=== PATIENT | male | born 1950 | race Caucasian/White ===

== ENCOUNTER 2018-11-12 20:38 | Inpatient (IN) ==
--- NOTE | 2018-11-12 20:46 | Diag Imaging Result Doc PS360 ---
EXAM: CT HEAD W/O CONTRAST INDICATION: stroke like TECHNIQUE: This exam was performed using automated exposure control, adjustment of mA or kV according to patient size, and/or use of iterative reconstruction technique. COMPARISON: None. FINDINGS: There is no definite acute infarct given the limited sensitivity of CT versus MRI. There is no discrete intracranial mass, mass effect, or intracranial hemorrhage. There is extensive chronic left maxillary sinus disease with complete opacification of the left maxillary sinus. Surrounding soft tissues and bony structures are essentially unremarkable, otherwise. IMPRESSION: 1.No evidence of acute intracranial pathology by CT. 2.Chronic left maxillary sinusitis. Electronically signed by Buck Rodriguez 11/12/2018 8:43 PM
[2018-11-12] MEDS ORDERED: NS 1,000 ML IV ONE ×2 (20:52→20:53)
--- NOTE | 2018-11-12 20:56 | PROVIDER DOCUMENTATION ---
HPI-General Adult - General Stated Complaint: Poss Stroke Time Seen by Provider: 11/12/18 20:40 Source: family Unable to obtain history due to:: other (she does not know all of his medical hx, or many detalils of HPI) - History of Present Illness -Gen Adult Nature of Presenting Problems: Family says BS has been high, she is unsure for how long, pt has not told her, just knows that has not been taking his meds. She says he has been less alert, not talking for 3 hours. No fever known, no abd pain, no N/V/change in BM. No cough. Pt is looking about, slowly, but is nonverbal Old records reviewed. No recent admissions Review of Systems - Adult - REVIEW OF SYSTEMS - ADULT ROS:: unobtainable per condition Constitutional: reports: see HPI Eyes: reports: no symptoms reported Ears, Nose, Mouth & Throat: reports: no symptoms reported Cardiovascular: reports: no symptoms reported Neurological: reports: see HPI Psychiatric: reports: see HPI Endocrine: reports: no symptoms reported Hematologic/Lymphatic: reports: no symptoms reported Past History - Adult - PAST MEDICAL HISTORY-ADULT Review of Records: reports: Medications Reviewed Cardiovascular: reports: HTN Diabetes Type: Type 2 Physical Exam-General - PHYSICAL EXAM-ADULT Initial Vital Signs Reviewed: Yes - CONSTITUTIONAL General Appearance: mild distress, other (awake, not alert) - EYES Eyes: PERRL/EOMI, pink conjunctivae - HEAD, EARS, NOSE, MOUTH & THROAT HENMT: normocephalic/atraumatic, moist mucous membranes, normal ENT inspection, pharynx normal - NECK Neck: full range of motion, supple - RESPIRATORY Respiratory: lungs clear, normal breath sounds, no pleuratic chest pain, no respiratory distress, no accessory muscle use - CARDIOVASCULAR Cardiovascular: regular rate, rhythm, no edema, no gallop, no murmur - GASTROINTESTINAL (ABDOMEN) Abdominal Exam: normal bowel sounds, non tender, soft - MUSCULOSKELETAL Back Exam: normal inspection, no CVA tenderness, no vertebral tenderness Extremity: normal range of motion, non-tender, normal gait, normal inspection - SKIN Integumentary: normal color, normal turgor, warm/dry - NEUROLOGIC Neurologic: other (has random extremity motion, is non verbal, so cant check senastion) - PSYCHIATRIC Psych/Mental Status: other (unable to evaluate) Progress - PLAN OF CARE/RESULTS Progress/Plan/Lab Results: Orders Category Date Time Status CT HEAD W/O CONTRAST [CT] Stat Exams 11/12/18 20:31 Completed Result Diagrams: 11/12/18 21:26 11/12/18 21:26 - REASSESSMENT Reassessment #1 Time Reassessed: 23:04 - CONSULTS/PCP/HOSPITALIST Notification #1 *Consult/PCP/Hospitalist*: Raghavendra Time Discussed: 23:10 Consult Disposition: Will see in ED, Admit Departure - Departure Date of Disposition Decision: 11/12/18 Time of Disposition Decision: 23:04 DIAGNOSIS: Altered mental status, Hyponatremia, Acute kidney injury, Hyperglycemia due to type 2 diabetes mellitus Disposition: ADMITTED INPATIENT 09 Certified Medical Emergency: Emergent Condition: Good Referrals and Follow-Ups: Juan Monroe MD [Primary Care Provider] - - Critical Care Note This patient required my direct & personal management of CC.: No Attestation - Physician/ SONIDO Attestation Patient care was provided by Advanced Practice Provider:: No The physician spent face to face time with patient:: Yes Advanced Practice Provider documentation review:: Supervising physician onsite and consulted in the evaluation and care of this patient. The physician did have a face to face encounter with the patient.
--- NOTE | 2018-11-12 21:11 | Diag Imaging Result Doc PS360 ---
EXAM: CHEST-1 VIEW INDICATION: AMS TECHNIQUE: One view COMPARISON: None. FINDINGS: There is a calcified granuloma at the right lower lung zone. Inspiration is suboptimal. No well-defined airspace consolidation is appreciated. There is no discrete pleural fluid collection or pneumothorax. There are calcified right paratracheal lymph nodes indicating prior granulomatous disease. The central vasculature appears slightly prominent, probably due to vascular crowding from poor inspiration and/or mild pulmonary venous congestion. The cardiac silhouette is borderline prominent. IMPRESSION: Slightly prominent central vasculature suggesting likely mild pulmonary venous congestion. Electronically signed by Buck Rodriguez 11/12/2018 9:09 PM
[2018-11-12 21:12] LABS: ALLEN TEST YES; BE 1.4 mmoll (-3.0-3.0); BLOOD TYPE ARTERIAL; HCO3-(ACT) 25.9 mmoll (20.0-26.0); METHB 0.9 % (0.0-1.5); O2(CT) 11.5 mL/dL (15.0-23.0); O2HB 89.1 % (95.0-99.0); PCO2(98.6) 44 mmHg (35-45); PO2(98.6) 66 mmHg (60-100); SAMPLE BLOOD; SAO2 96.8 % (95.0-100.0); THB 9.1 g/dL (11.5-17.4); pH(98.6) 7.39 (7.35-7.45)
[2018-11-12 21:13] LABS: MODALITY CANNULA
[2018-11-12 21:52] LABS: BASO# 0.04 X1000 (0.0-0.2); BASO% 0.5 % (0.0-0.8); EOS# 0.09 X1000 (0.0-0.7); EOS% 1.1 % (0.0-10.0); HEMATOCRIT 30.7 % (42.0-52.0); IMM GRAN# 0.05 X1000 (0.0-0.04); IMM GRAN% 0.6 % (0.0-0.5); LYMPH# 2.77 X1000 (1.2-3.4); LYMPH% 33.3 % (20.5-51.1); MCH 25.4 PG (27-31); MCHC 32.6 g/dL (33-37); MCV 77.9 FL (81-99); MONO# 0.79 X1000 (0.11-0.59); MONO% 9.5 % (1.7-9.3); NEUT# 4.59 X1000 (1.4-6.5); PLT 170 X1000 (130-400); RBC 3.94 XMIL (4.7-6.1); RDW 17.7 % (11.5-14.5); WBC 8.33 X1000 (4.8-10.8)
[2018-11-12 21:58] LABS: INR 0.97; PROTIME 13.7 Seconds (11.0-16.0)
[2018-11-12 21:59] LABS: PTT 29.5 Seconds (22.3-41.8)
[2018-11-12 22:15] LABS: URINE SOURCE CATH
[2018-11-12 22:20] LABS: BILIRUBIN URINE NEGATIVE (NEGATIVE); BLOOD URINE NEGATIVE (NEGATIVE); COLOR STRAW; GLUCOSE URINE >1000 mg/dL (NEGATIVE); KETONE URINE NEGATIVE (NEGATIVE); LEUKOCYTES URINE NEGATIVE (NEGATIVE); NITRITE URINE NEGATIVE (NEGATIVE); PROTEIN URINE NEGATIVE (NEGATIVE); SP GRAVITY URINE 1.005; TURBIDITY URINE CLEAR (CLEAR); UR EPITHELIAL CELLS <10 /HPF (<10); URINE BACTERIA NEGATIVE /HPF; URINE RBC <10 /HPF (<10); URINE WBC <10 /HPF (<10); UROBILINOGEN URINE NORMAL (NORMAL)
[2018-11-12 22:29] LABS: ACETONE SERUM NEGATIVE (NEGATIVE)
[2018-11-12 22:32] LABS: AGAP 12; ALB/GLOB RATIO 1.3; ALBUMIN 3.7 g/dL (3.5-5.0); ALKALINE PHOSPHATASE 65 U/L (32-122); BUN 42 mg/dL (8-22); CALCIUM 8.2 mg/dL (8.8-10.2); CHLORIDE 92 mmol/L (98-107); COSMO 287; CREATININE 1.8 mg/dL (0.7-1.2); ESTIMATED GFR 38; GOT 9 U/L (10-34); GPT 8 U/L (10-44); POTASSIUM 4.2 mmol/L (3.5-5.1); SODIUM 129 mmol/L (136-145); TCO2 25 mmol/L (25-35); TOTAL BILIRUBIN 0.39 mg/dL (0.20-1.00); TOTAL PROTEIN 6.5 g/dL (6.3-8.3)
[2018-11-12 22:33] LABS: UR AMPHETAMINES QUAL NONE DETECTED (NONE DETECT); UR BARBITUATES QUAL NONE DETECTED (NONE DETECT); UR BENZODIAZEPIN QUAL PRESUMPTIVE POSITIVE (NONE DETECT); UR CANNABINOIDS QUAL NONE DETECTED (NONE DETECT); UR COCAINE QUAL NONE DETECTED (NONE DETECT); UR METHADONE QUAL NONE DETECTED (NONE DETECT); UR OPIATES QUAL NONE DETECTED (NONE DETECT); UR OXYCODONE QUAL NONE DETECTED (NONE DETECT); UR PCP QUAL NONE DETECTED (NONE DETECT)
[2018-11-12 22:34] LABS: GLUCOSE 421 mg/dL (70-104)
[2018-11-12] MEDS ORDERED: HUMULIN R IV ONE (23:03)
[2018-11-13] MEDS ORDERED: ZOFRAN IV PRN (04:47)
[2018-11-13] MEDS ORDERED: TYLENOL PR PRN (04:47)
[2018-11-13 05:38] LABS: BASO# 0.01 X1000 (0.0-0.2); BASO% 0.1 % (0.0-0.8); EOS# 0.07 X1000 (0.0-0.7); EOS% 0.9 % (0.0-10.0); HEMATOCRIT 27.4 % (42.0-52.0); HEMOGLOBIN 8.9 g/dL (14.0-18.0); LYMPH# 1.32 X1000 (1.2-3.4); LYMPH% 16.1 % (20.5-51.1); MCH 25.4 PG (27-31); MCHC 32.5 g/dL (33-37); MCV 78.1 FL (81-99); MONO# 0.66 X1000 (0.11-0.59); MONO% 8.1 % (1.7-9.3); MPV 12.5 FL (7.4-10.4); NEUT# 6.13 X1000 (1.4-6.5); NEUT% 74.8 % (42.2-75.2); PLT 157 X1000 (130-400); RBC 3.51 XMIL (4.7-6.1); RDW 17.5 % (11.5-14.5); WBC 8.19 X1000 (4.8-10.8)
[2018-11-13 05:49] LABS: HEMOGLOBIN A1C 7.9 % (4.8-6.0)
[2018-11-13 06:03] LABS: ALB/GLOB RATIO 1.4; ALBUMIN 3.3 g/dL (3.5-5.0); CALCIUM 7.9 mg/dL (8.8-10.2); CREATININE 1.5 mg/dL (0.7-1.2); MAGNESIUM 1.5 mg/dL (1.5-2.7); POTASSIUM 4.2 mmol/L (3.5-5.1); TOTAL BILIRUBIN 0.35 mg/dL (0.20-1.00); TOTAL PROTEIN 5.6 g/dL (6.3-8.3)
[2018-11-13] MEDS: PROTONIX 80 MG in NS 80 ML IV SCH ×2 (06:41→15:45)
[2018-11-13] MEDS: HUMULIN R SUBQ SCH ×4 (06:47→22:10)
--- NOTE | 2018-11-13 07:35 | Diag Imaging Result Doc PS360 ---
EXAM: CT THORAX/ABD/PELVIS W/O CON 11/13/2018 HISTORY: AMS,Hypoxia,Tk. Crackles,Abd. Pain,Hypotensive TECHNIQUE: This exam was performed using automated exposure control, adjustment of mA or kV according to patient size, and/or use of iterative reconstruction technique. COMMENT: Thorax: There are no previous studies available for comparison. There are is platelike opacity in both lower lobes consistent with atelectasis. The stomach is massively distended and there is a large amount of fluid in the lower esophagus. There is fluid seen into the upper thoracic esophagus. The possibility of aspiration cannot be excluded. There are calcified granulomata particularly in the right middle lobe. There is extensive coronary calcification. There are calcified nodes in both samaria and the subcarina. There is a calcified paratracheal node on the right. There is no evidence of acute bony abnormality. Abdomen/pelvis: The stomach is massively distended with a fat fluid level. There are multiple densely calcified gallstones in the gallbladder. The gallbladder is not distended. The stones measure up to 9 mm in size. The adrenal glands are not enlarged. There are granulomata in the spleen. The liver is grossly normal considering the lack of contrast. The pancreas is relatively atrophic. The left kidney is without evidence of stones or hydronephrosis. There is mild hydronephrosis on the right. There is motion artifact degrading the images to some extent. There is a 2.5 cm exophytic mass arising laterally from the lower pole right kidney with a CT density of over 20 Hounsfield units. This may represent a complicated cyst and further evaluation with ultrasonography may be desirable. There is a Day catheter in the bladder. There is no definite evidence of ureterolithiasis. There is some solid stool in the rectum. The small bowel is not distended. There is no evidence of appendicitis. There is no free fluid. There are degenerative disc changes in the lumbar spine with spinal stenosis at L4-5. IMPRESSION: 1. Markedly distended stomach with gastroesophageal reflux up to the upper thoracic esophagus, bibasilar atelectasis and possible aspiration pneumonia. Small left pleural effusion. The possibility of gastroparesis should be considered. 2. Cholelithiasis. 3. Nonspecific right renal mass. Electronically signed by Beny Nova 11/13/2018 7:32 AM
--- NOTE | 2018-11-13 08:53 | EKG Report ---
Test Performed on : 11/13/2018 04:57:54 AM Test Reason : CP Blood Pressure : / mmHG Vent. Rate : 093 BPM Atrial Rate : 093 BPM P-R Int : 214 ms QRS Dur : 088 ms QT Int : 378 ms P-R-T Axes : 108 065 052 degrees QTc Int : 469 ms Sinus rhythm. with 1st degree AV block. Otherwise normal ECG When compared with ECG of 13-JAN-2008 02:23, [place] interval has increased Unconfirmed Result
[2018-11-13 09:07] LABS: HEMATOCRIT 28.2 % (42.0-52.0)
[2018-11-13] MEDS ORDERED: INFED 25 MG in NS 25 ML IV ONE (09:42)
[2018-11-13] MEDS: LR 1,000 ML IV SCH ×2 (09:49→20:00)
[2018-11-13] MEDS: MAGNESIUM SULFATE 2 GM/S.W.I. 2 GM/50 ML IVPB IV SCH ×2 (09:54→13:54)
--- NOTE | 2018-11-13 10:11 | HISTORY AND PHYSICAL ---
PRIMARY CARE PROVIDER: LESLY Lemus. CHIEF COMPLAINT: Altered mental status. HISTORY OF PRESENT ILLNESS: Mr. Mejía is a 68-year-old male who was, up until a few months ago, living at the assisted living facility of [facility]. Though his daughter states that he was having problems with memory that he would forget to pay his rent, he would think he had paid it, but he didn't do this, as well as memory problems with other things, and not really being able to take care of himself anymore. She did have him removed from the facility, and he is living at home with her. She states over the last 3 months that she has noticed him having more and more problems with confusion. She did state that he had been very restless at night, and not been able to sleep. He has been complaining of right hip pain stating it was keeping him up at night to where he was unable to sleep. She states that she did bring him to the ER due to yesterday afternoon on 11/12/2018 she found him to be lethargic, and was very confused. She called the ambulance and had them bring him here in the hospital for further evaluation. Also, it was noted in the ER notes that his blood glucose levels have been running high. He does still smoke cigarettes daily. She states that he did have a previous history of alcohol abuse though she states that he has not drank in years. She has no known knowledge of him using any illicit drugs. Unfortunately, the patient's sister is not the most knowledgeable about his past medical history. During my examination in the room, the patient was drowsy although was arousable with verbal and light tactile stimulation. He did actually get sick and vomit, and did have coffee- grounds emesis noted. We did test this, and it was Gastroccult positive. Given this, we also did perform Hemoccult stool. This was positive as well. During this time, as well as assessing the patient in cleaning him up, he did become much more alert. He was able to answer some questions. He did tell me his name, and that the month was October. He was only slightly off from this. His speech was slurred somewhat, and was hard to understand. He was not able to tell me where he was at though he did tell me that he had vomited at home, and that he had been having black dark stools. He stated that his stomach had been hurting, and he did have generalized tenderness when I palpated. He had been reporting dizziness especially upon standing. He denies any shortness of breath. No cough or chest pain. He denies any dysuria. He denies any pain, numbness, tingling or swelling in extremities. He also denied any alcohol or drug use. Initial vitals upon arrival in the ER,temperature 97.5 degrees, heart rate 88, respirations 20, blood pressure 103/55, and oxygen saturation of 89% on room air. He has been placed on oxygen nasal cannula in 2 to 3 L, and is maintaining adequate oxygen saturations of 98% now. Patient was mildly hypotensive. He did have a one time blood pressure that registered 88/48 with a MAP of 66. Given this, he was given 2 L normal saline bolus in the ER. Since that time, his blood pressure has maintained adequate readings with MAP's in the 70s. Upon examination, the patient's lung sounds did have some rhonchi and crackles noted bilaterally. His abdomen does seem slightly distended. He did complain of some generalized tenderness. Bowel sounds were hyperactive. Given his lung sounds, his hypoxia, him being hypotensive, and his abdominal distention, we did order a CT of thorax, abdomen and pelvis without contrast due to his creatinine being 1.8. He will be placed for inpatient admission to the ICU. REVIEW OF SYSTEMS: A 14 point review of systems was conducted with the patient. All were negative except for pertinent positives mentioned above in HPI. PAST MEDICAL HISTORY: 1. Diabetes mellitus type 2. 2. Hypertension. 3. Osteoarthritis. 4. History of depression with suicidal ideations, and it looks as though previously he has been admitted to [facility] for drug overdoses. He also has a history of ruptured spermatic cord. 5. History of fractured left leg and arm with surgical correction. PAST SURGICAL HISTORY: Surgery for fractured left leg and arm. SOCIAL HISTORY: The patient is a current every day smoker. He smokes 1 pack of cigarettes per day. He smoked for a very long time though the exact amount of time we are unsure of. He did previously abuse alcohol as well as reportedly has had some polysubstance abuse in the past as well according to previous history and physicals. Though his sister at the bedside as well as we did question the patient about this, he did deny any current alcohol or illicit drug use. He does live with his sister at present. She does help take care of him. The patient from what I understand is mostly wheelchair bound though does ambulate some now with assistance. He was previously living in an assisted living facility of [facility] though due to increasing problems with memory. She did remove him from this facility, and has taken over his care. FAMILY HISTORY: Positive for his mother having a history of diabetes mellitus, stroke and heart disease. His father has a history of polycythemia. ALLERGIES: Patient has no known allergies. HOME MEDICATIONS: 1. Benztropine mesylate 10 mg tablet half tablet p.o. b.i.d. 2. Vitamin D3 5000 units p.o. daily. 3. Diazepam 5 mg p.o. t.i.d. 4. Benadryl Allergy 25 mg p.o. p.r.n. as needed. 5. Cymbalta 60 mg p.o. daily. 6. Lasix 40 mg p.o. daily. 7. Gabapentin 800 mg p.o. t.i.d. 8. Lopid 600 mg p.o. b.i.d. 9. NovoLog FlexPen subcu as directed. 10. Lisinopril 5 mg p.o. daily. 11. Actos 45 mg p.o. daily. 12. Potassium chloride 20 mEq p.o. daily. 13. Seroquel 600 mg p.o. at bedtime. 14. Trazodone 150 mg p.o. at bedtime. DIAGNOSTIC DATA/LABORATORY RESULTS: White blood cell count is 8330, hemoglobin 10, hematocrit 30.7, platelet count is 170,000, PTT 13.7, INR 0.97, and PTT is 29.5. Sodium 129, potassium 4.2, chloride 97, bicarb is 25, BUN 42, and creatinine 1.8, GFR 38. Glucose is 421, calcium 8.2. Liver function tests within normal. CK 155. Troponin 0.043. Serum alcohol was 0. Arterial blood gases were obtained on nasal cannula with FiO2 28%. PH 7.39, pCO2 44, PO2 66, and HC03 is 25.9 with a base excess of 1.4. Oxyhemoglobin was 88.1. O2 saturation was 96.8 and carboxyhemoglobin was 7.1. Urinalysis was obtained via catheter and was positive for greater than 1000 glucose. Negative for ketones, blood, nitrites, leukocytes, and [*]bacteria. Urine drug screen was positive for benzodiazepines. CT of thorax, abdomen and pelvis showed cardiomegaly with [id number] pulmonary edema. Multiple small cholelithiasis present within the gallbladder body and neck though no pericholecystic inflammatory changes noted. There is no cholelithiasis. There is increased attenuation of the liver which can be associated with amiodarone administration, marked coronary artery atherosclerosis. Also, there was no effusion. No pleural effusion noted, though there is minimal atelectasis versus scarring present along the dependent lung bases. Also, noted that the esophagus was fluid-filled and distended throughout nearly its entire course. PHYSICAL EXAMINATION: VITAL SIGNS: Temperature 97.5 degrees, heart rate 95, respirations 22, blood pressure 124/63, with a MAP of 70 with oxygen saturation of 96 to 98% on nasal cannula 2 L. GENERAL: Mr. Mejía is a pleasant 68-year-old male who was resting on the ER stretcher with his eyes closed. He was drowsy upon examination, though was he was easily arousable with verbal and light tactile stimulation. Once awoken, he was alert and oriented to person, though he could not tell me where he was, he thought the month was October instead of November; he was only slightly off on this. He could answer some simple questions and follow commands. HEENT: Head is atraumatic, normocephalic. Pupils are equal, round, reactive to light, were 3 mm bilaterally and brisk. Oral mucosa slightly dry. Oropharynx was clear. NECK: Supple. Trachea midline. CARDIOVASCULAR: Patient has S1-S2. No murmurs, gallops, or rubs appreciated. Regular rate and rhythm. PULMONARY: Patient has symmetrical chest expansion bilaterally. Lung sounds in bilateral full de luna had rhonchi. He did have crackles noted in bilateral bases. ABDOMEN: Soft. He did have some generalized tenderness noted. He did have some slight distention noted as well. Bowel sounds are present all 4 quadrants and were hyperactive. EXTREMITIES: No cyanosis, clubbing, or edema noted. Pulse, motor, and sensory were intact in all extremities. Radial pulses and pedal pulses are 2+ bilaterally. INTEGUMENTARY: Patient's skin is warm and dry. NEUROLOGICAL: Patient is alert and oriented to person. He was slightly off on time. He thought it was October instead of November. He did not know where he was, though he could answer simple questions related to history of present illness. He did answer most questions appropriately. He was able to follow simple commands. He did recognize his sister at bedside. He is able to move all extremities. He is confused, and has a little bit of slurred speech. He has no other focal neurological deficits noted. ASSESSMENT AND PLAN: 1. Suspected gastrointestinal bleed. The patient does have coffee ground emesis. He does have Hemoccult stool that is positive as well. I suspect that given his abdominal tenderness and distended stomach, this may be upper gastrointestinal bleeding. The patient does have a distant history of alcohol abuse though he denies any at present. He has been mildly hypotensive in the ER. He is anemic as well with a hemoglobin of 10 and hematocrit 30.7. Given these findings, we have gone ahead and ordered for him to be placed on a Protonix drip. He will be NPO. We will do q.4 hours hemoglobin and hematocrit checks. He did receive 2 L normal saline bolus though we will hold off on any further fluid administration at this time just momentarily due to his chest x-ray and CT are showing findings that may be consistent with pulmonary edema. We have placed a consult with Dr. Linda gastroenterology. We will await his evaluation and further recommendations for management. 2. Microcytic anemia. We will continue treatment as mentioned above for #1. We have placed orders for anemia profile and can be type and screen. We will transfuse if necessary. We will continue to follow. 3. Acute kidney injury. This may be secondary to volume depletion as well as some hypotension. We have given fluids as mentioned above. We will avoid nephrotoxic medications and renally dose medications as necessary. 4. Diabetes mellitus type 2. The patient is having some hypoglycemia. We have placed sliding scale insulin. We will do pattern fingerstick blood sugars. 5. Encephalopathy. This could be multifactorial. The patient does have likely gastrointestinal bleed. He was hypotensive. Also, he does take several medicines that could effect in his neurological status. He does state that he forgets things at times, and he may possibly have taken more of his medicine than he was supposed to by accident thinking that he did not take it, and will take it twice. I will hold these medications at this time. We will do neurological checks and continue to follow. His CT of the head was negative for any acute intracranial abnormalities. 6. Hypotension. As previously mentioned, we have given 2 L normal saline bolus. His pressures have improved. We will continue to follow. The patient has been placed in ICU for close monitoring. We will do continuous pulse oximetry and cardiac telemetry. He will have vital signs per ICU protocol. We will do q.4 hours neuro checks. He also received q.4 hours fingerstick blood sugars. He will be NPO until evaluated by gastroenterology. We will repeat a CBC and CMP in the morning. His troponin was slightly elevated though he is not complaining of any chest pain, he does have acute kidney injury. This may be likely secondary to this. His EKG showed a sinus rhythm with a first-degree AV block at a rate of 93. There does not appear to be any acute ST elevation or depression noted at this time. Further orders and recommendations pending hospital course, diagnostic studies, and physician evaluation. Dictated by LESLY Mac for Phillip Mabry MD cc: Phillip Mabry MD
[2018-11-13] MEDS: INFED 250 MG in NS 250 ML IV SCH (10:56)
[2018-11-13] MEDS: LANTUS INSULIN SUBQ SCH (11:00)
--- NOTE | 2018-11-13 11:11 | PROGRESS NOTE ---
DATE: 11/13/2018 INTERVAL HISTORY: Mr. Mejía was admitted for hyperglycemia, altered mental status. While in the emergency room, he was found to have positive fecal occult blood test, and in the ICU, he also had bloody vomiting and hematemesis. The patient is a poor historian, and patient's sister on phone did not contribute to a lot of clinical history meaningfully. At the time of my evaluation, the patient appears comfortable. He is sleepy, but easily arousable, talks for some time. However, his historical data keeps on changing as he states different stories to different people. However, he confirmed with me thrice on my evaluation that he thought about killing himself, but he has not overdosed to kill himself. He remembers some of the medications he takes home OBJECTIVE: Currently vitals with temperature afebrile of 98.1, pulse of respiratory rate 20, blood pressure 110/47 saturating 98% on room air. On physical examination, he does not appear in any acute distress. Oral cavity has old flecks of blood adherent to hard palate. No pallor. Air entry bilaterally equal. No wheeze, rhonchi, crackles. S1, S2 normal. No murmur, rub, gallop. Abdomen is soft, nontender. No hepatosplenomegaly. No lower extremity edema. LABORATORIES: Suggestive of hemoglobin of 9, microcytosis, normal platelet count. Normal coagulations. He does have hyponatremia and hypochloremia which are improving. His kidney function is improving as well. His blood glucose is 301. Iron panel suggests a significantly low ferritin and increased total iron-binding capacity. His magnesium is low which is being repleted. MICROBIOLOGY: Gastric and stool occult blood tests have been positive. IMAGING: Chest, abdomen, and pelvis CT had distended stomach with gastroesophageal reflux disease in esophagus and bilateral atelectasis, cholelithiasis, and nonspecific renal mass. ASSESSMENT AND PLAN: 1. Acute encephalopathy. According to sister's report, the patient's blood sugars were more than 500 at home. He is also listed to be taking multiple medications for his bipolar mood disorder. This in combination could have contributed to his acute encephalopathy. The patient denies overdose repeatedly, though he is not a completely reliable historian. Head CT was unremarkable. I will continue to monitor his mental status at the moment. 2. Acute gastrointestinal bleeding with episode of hematemesis in Intensive Care Unit. Positive fecal occult blood test. Acute blood loss anemia, microcytosis and low ferritin. Probably chronic blood loss based on his low ferritin. I will continue pantoprazole drip, and I will start him on intravenous iron. I will replete his magnesium. He is not listed to be taking any NSAIDs. If he continues to have gastrointestinal bleed or a significant drop in hemoglobin, he may need upper endoscopy. 3. Kidney dysfunction. His baseline kidney function is unclear. I will continue him on intravenous lactated Ringer's. He is also hypotensive. I will continue close monitoring of intake and output through urine catheter and follow up with serial BMP. 4. Insulin-dependent diabetes mellitus, type 2, with hyperglycemia on presentation. Continue him on sliding scale insulin and adjust the dose according to his response. 5. History of bipolar mood disorder and suicide attempt in the past. Currently he is denying any active suicidal ideation, and he refuses to have overdosed. I will continue to monitor him in ICU. I will add back his home medications of diazepam, duloxetine, gabapentin, quetiapine, trazodone, and benztropine for now. I will add back as tolerated. DISPOSITION: The patient's condition remains critical. Plan of care discussed with the patient. I also called patient's sister to get more history information and address her concerns. All of her questions have been answered. >30 minutes of critical care time spent. cc: Malcolm Taylor MD MTDD
--- NOTE | 2018-11-13 12:21 | GASTROENTEROLOGY CONSULTATION ---
DATE: 11/13/2018 REASON FOR CONSULTATION: Hematemesis. HISTORY OF PRESENT ILLNESS: Mr. Jefferson Mejía is a 68-year-old gentleman with a past medical history of hypertension, hyperlipidemia, insulin-dependent diabetes, chronic hip pain and arthritis, bipolar disorder, anxiety, depression, history of dysphagia requiring esophageal dilations in the past by Dr. Morris, who presented from home with altered mental status that has been progressive over the last several months. The patient is a poor historian. The history is obtained from patient's medical record. He reports that the reason why he was admitted was because he was weak at home and unable to stand on his feet. Over the last several days, he has been unable to sleep and his sister is concerned about his depression. He denies any active suicidal or homicidal ideation. He does report having dysphagia with each meal, particularly solid foods that get hung up in his lower chest, requiring him to stretch his arms to make it pass. He denies any nausea or vomiting, although here, he did have an episode of coffee-grounds emesis while in the ICU. He also reports some constipation and has not had a bowel movement in the last 3 days. No melena or hematochezia. He has had a colonoscopy in the past with Dr. Morris years ago but he cannot specify exactly when the procedure was done. He takes Tums daily. He does not recall being on a PPI in the past. He also takes Aleve rarely. He denies any shortness of breath, chest pain, cough, dysuria, swelling. He does have some dizziness with standing. REVIEW OF SYSTEMS: As per HPI. Otherwise, a 12 point review of systems is negative. PAST MEDICAL HISTORY: As per HPI. He has had a fractured left leg and arm requiring repair. He has had some sort of abdominal surgery, I suspect umbilical hernia, although patient cannot specify exactly what kind of abdominal surgery he has had. SOCIAL HISTORY: He smokes 1-1/2 packs per day and has smoked for 40 years. He denies any alcohol or drug use. He lives with his sister. He was previously residing at [facility], at assisted living facility up until 3 months ago. FAMILY HISTORY: No family history of GI malignancies. ALLERGIES: No known drug allergies. HOME MEDICATIONS: He is on benztropine, vitamin D3, diazepam, Benadryl, Cymbalta, Lasix, gabapentin, Lopid, NovoLog, lisinopril, Actos, potassium, Seroquel, trazodone, Tums, aspirin, Aleve as needed. PHYSICAL EXAMINATION: In the ER, the patient was noted to be hypotensive with a blood pressure of 88/44 without tachycardia. He was bolused 2 L of fluid in transit with EMS. Currently, his vital signs are notable for a temperature of 98.1 degrees, heart rate of 90, blood pressure 110/47, respiratory rate of 20, O2 saturation of 98% on room air. General: The patient is awake, alert, and oriented x3. He has some word-finding difficulties and trouble recalling who the President is. HEENT: Sclerae anicteric. Moist mucous membranes. Extraocular motor intact. Neck: Supple. No JVD or lymphadenopathy. Cardiac: Regular rate and rhythm. No murmurs, rubs, or gallops. Lungs: Clear to auscultation bilaterally. No wheezing. Abdomen: Soft, nontender, nondistended. Normoactive bowel sounds. No rebound or guarding. A supraumbilical, 1 inch scar was noted. Extremities: No clubbing, cyanosis, or edema. Neurologic: Cranial nerves 2-12 grossly intact. The patient is moving all extremities symmetrically. Psychiatric: The patient is tangential, often gives conflicting history. Affect is normal. The patient admits to some depression and not feeling happy. Says that Zoloft was helpful in the past and Cymbalta does not seem to work for him. Again, he denies any suicidal or homicidal ideation. LABS: White count of 8.1, hemoglobin is 9.0 from 10.0 on admission, unknown baseline, MCV is 78, platelets of 157,000. INR is 0.97. Blood gas on admission, pH of 7.39, pCO2 of 44, PO2 of 66. Sodium is 135 from 129 on admission, potassium 4.2, chloride 95, bicarb 27, BUN of 38, creatinine 1.5 from 1.8 on admission, unknown baseline, glucose 301-421. Hemoglobin A1c is 7.9. Calcium 7.9. Iron of 32, TIBC of 303, percent saturation of 11, ferritin of 1. Total bilirubin of 0.35, AST of 10, ALT of 8, alkaline phosphatase of 64. CK of 187, troponin is 0.031. Total protein 5.6, albumin 3.3. Folate 3.2, vitamin B12 is 357, lactate of 1.5. UA shows glucose. Urine toxicology is positive for benzodiazepines. Alcohol level is negative. IMAGING: Head CT shows chronic left maxillary sinusitis. No acute intracranial findings. Chest x-ray, slightly prominent central vascular congestion. CT of the chest, abdomen, and pelvis without contrast shows a markedly distended stomach with gastroesophageal reflux up to the upper thoracic esophagus, bibasilar atelectasis, and possible aspiration pneumonia, small left pleural effusion, cholelithiasis, and a nonspecific right exophytic mass in the right kidney measuring 2.5 cm. ASSESSMENT AND PLAN: Mr. Jefferson Mejía is a 68-year-old gentleman with a past medical history notable for gastroesophageal reflux disease and probable esophageal stricture requiring dilation in the past, and hypertension, insulin-dependent diabetes, bipolar disorder, on aspirin, who presents with altered mental status in the setting of anemia, severe iron deficiency anemia, hematemesis, hyponatremia, and probable acute kidney injury. His mental status seems to have improved, although unclear baseline. His hemoglobin is 9.0 with microcytosis. Ferritin is severely low at 1 and has notable folate deficiency as well. It is unclear when he had his last esophagogastroduodenoscopy and colonoscopy with Dr. Morris. The patient had a rectal exam done at the bedside by Dr. Taylor that did not reveal any masses or stool in the vault. I suspect that he has had acute on chronic blood loss for a long period of time. We will give him clear liquids for now and antiemetics for nausea and vomiting, and plan for a diagnostic esophagogastroduodenoscopy tomorrow. He will ultimately need a colonoscopy as well if the upper endoscopy is negative for ulcers or other etiologies to explain his severe iron deficiency. 1. Hematemesis. Clear liquids for now. Proton pump inhibitor intravenous twice a day. Trend his hemoglobin and hematocrit every 12 to 24 hours. Transfuse as needed to maintain hemoglobin between 7 and 8. Avoid nonsteroidal anti-inflammatory drugs, aspirin, or blood thinners. Sequential compression devices for deep venous thrombosis prophylaxis. 2. Iron deficiency anemia. The patient will receive intravenous iron here per Dr. Taylor. 3. Folate deficiency. Recommend repleting folate 1 mg by mouth once daily. 4. Altered mental status, possibly secondary to hypotension on presentation in the setting of hypovolemia, hyponatremia, or acute kidney injury. Correct metabolic derangements and fluid resuscitation to maintain his MAPs greater than 60. 5. Hypotension, improved with fluid resuscitation. We will continue to monitor. 6. Hyponatremia, improved with intravenous fluids. Continue fluid resuscitation as per primary. 7. Insulin-dependent diabetes. Glucose better controlled. A1c is 7.9. Sliding scale insulin as per primary. 8. History of dysphagia. We will evaluate tomorrow with endoscopic evaluation. Thank you for this consult. We will follow with you. Please call with any questions or concerns. DUSTY
[2018-11-13 14:53] LABS: HEMATOCRIT 27.5 % (42.0-52.0); HEMOGLOBIN 8.8 g/dL (14.0-18.0)
[2018-11-13 18:16] LABS: HEMATOCRIT 27.6 % (42.0-52.0); HEMOGLOBIN 8.8 g/dL (14.0-18.0)
[2018-11-13 21:59] LABS: HEMATOCRIT 28.2 % (42.0-52.0); HEMOGLOBIN 8.9 g/dL (14.0-18.0)
[2018-11-14] MEDS: PROTONIX 80 MG in NS 80 ML IV SCH (00:56)
[2018-11-14 01:52] LABS: HEMATOCRIT 27.4 % (42.0-52.0); HEMOGLOBIN 8.8 g/dL (14.0-18.0)
[2018-11-14] MEDS: HUMULIN R SUBQ SCH ×4 (06:19→22:51)
[2018-11-14 06:32] LABS: BASO# 0.02 X1000 (0.0-0.2); BASO% 0.3 % (0.0-0.8); EOS# 0.23 X1000 (0.0-0.7); EOS% 3.3 % (0.0-10.0); HEMATOCRIT 30.7 % (42.0-52.0); HEMOGLOBIN 9.9 g/dL (14.0-18.0); LYMPH# 2.98 X1000 (1.2-3.4); LYMPH% 43.1 % (20.5-51.1); MCH 25.4 PG (27-31); MCHC 32.2 g/dL (33-37); MCV 78.7 FL (81-99); MONO# 0.61 X1000 (0.11-0.59); MONO% 8.8 % (1.7-9.3); MPV 12.4 FL (7.4-10.4); NEUT# 3.08 X1000 (1.4-6.5); NEUT% 44.5 % (42.2-75.2); PLT 176 X1000 (130-400); RDW 17.6 % (11.5-14.5); WBC 6.92 X1000 (4.8-10.8)
[2018-11-14 06:59] LABS: AGAP 12; ALB/GLOB RATIO 1.1; ALBUMIN 3.3 g/dL (3.5-5.0); ALKALINE PHOSPHATASE 64 U/L (32-122); BUN 20 mg/dL (8-22); CALCIUM 8.6 mg/dL (8.8-10.2); CHLORIDE 99 mmol/L (98-107); COSMO 277; ESTIMATED GFR > 60; GLUCOSE 72 mg/dL (70-104); GOT 12 U/L (10-34); GPT 8 U/L (10-44); POTASSIUM 3.7 mmol/L (3.5-5.1); SODIUM 138 mmol/L (136-145); TCO2 27 mmol/L (25-35); TOTAL BILIRUBIN 0.36 mg/dL (0.20-1.00); TOTAL PROTEIN 6.4 g/dL (6.3-8.3)
[2018-11-14] MEDS ORDERED: DIPRIVAN 1% ONE (07:49)
[2018-11-14] MEDS ORDERED: XYLOCAINE-MPF 2% ONE (07:49)
[2018-11-14] MEDS ORDERED: FENTANYL ONE (07:49)
--- NOTE | 2018-11-14 08:48 | PROGRESS NOTE ---
DATE: 11/14/2018 SUBJECTIVE: This patient is completely alert and oriented x3. It looks like when he came in, he was confused and with electrolyte imbalance and acute kidney injury, he was hyponatremia, hypochloremic, hyperglycemic, and with acute kidney injury with a creatinine 1.8. All the electrolytes including sodium, potassium, chloride, glucose normalized and the acute kidney injury has resolved. He came in also with hematemesis. Gastroenterology Department evaluated this patient and they are performing an EGD today. We will continue to monitor. He seems to be stable. OBJECTIVE: Vital Signs: Temperature 97.7 degrees, pulse 69, respiratory rate 21, blood pressure 148/61, oxygen saturation 99 on room air. HEENT: Head normocephalic. No trauma. PERRLA. Neck: Supple. No JVD. No masses. Central trachea. Chest: Clear to auscultation. No wheezing. No rales. Abdomen: Soft, nontender, nondistended. No hepatosplenomegaly. Extremities: No edema. No clubbing, no cyanosis. He had a small deformity at the level of the left elbow from previous intervention, and is painful to palpation and mobilization, but no signs of infection, back pain at the lower area. Neurological: This patient is alert, he is oriented, he is following commands and answering my questions at this moment. LABORATORY DATA: WBC 6.9, hemoglobin 9.9, hematocrit 30.7, platelet 176,000. Sodium 138, potassium 3.7, chloride 99, bicarbonate 27, BUN 20, creatinine 1, glucose 72, calcium 8.6. ASSESSMENT AND PLAN: 1. Encephalopathy. According to a family member, apparently his blood sugar has been really elevated at home, more than 500, he has a history of bipolar mood disorder, he came in with electrolyte imbalance. So, all this combination could have contributed to his acute encephalopathy. CT scan of the head without any acute abnormality. I do believe today he is stable and probably this is his baseline. 2. Gastrointestinal bleed with an episode of hematemesis, positive fecal occult blood test, anemia and microcytosis, likely this is chronic. Continue with pantoprazole. He is getting an EGD today. 3. Acute kidney injury, resolved. 4. Type 2 diabetes with hyperglycemia, resolved. Continue with the same management for now. 5. History of bipolar mood disorder and suicide attempt in the past, aware. Currently, he is getting an EGD. He has been in the ICU. We will continue his home medications. CRITICAL CARE TIME: 35 minutes. cc: Sixto Smith MD
[2018-11-14] MEDS: PROTONIX IV SCH ×2 (09:13→09:21)
[2018-11-14] MEDS: FLOXIN OTIC LEFT EAR SCH (09:21)
[2018-11-14] MEDS: LANTUS INSULIN SUBQ SCH (09:22)
[2018-11-14] MEDS: LR 1,000 ML IV SCH (09:25)
--- NOTE | 2018-11-14 11:26 | OPERATIVE NOTE ---
PROCEDURE DATE: 11/14/2018 DICTATING PHYSICIAN: Dr. Jorje Castle. REQUESTING PHYSICIAN: Dr. Ward. PRIMARY CARE DOCTOR: Dr. Monroe. TITLE OF SURGERY: 1. Esophagogastroduodenoscopy with esophageal biopsy. PREOPERATIVE DIAGNOSES: 1. Coffee-ground emesis. 2. Anemia. 3. History of use of nonsteroidal anti-inflammatory drugs. 4. Tobacco abuse. POSTOPERATIVE DIAGNOSES: 1. Severe esophagitis in the middle of the esophagus, LA grade 4. This was biopsied. The Z-line was at 45 cm. 2. Erosions gastric body and antrum, mild. 3. Normal fundus, cardia, incisura. 4. Duodenitis, duodenal bulb. 5. Normal 2nd portion. ESTIMATED BLOOD LOSS: Minimal. COMPLICATIONS: None. ANESTHESIA: Monitored anesthesia care. SPECIMEN: Esophageal biopsy. PROCEDURE: After informed consent, the patient explained the risks, benefits, indications, and alternatives to the procedure for EGD. The patient was brought to the OR. He was turned in a left lateral position. A bite block was placed in patient's mouth. After adequate monitored anesthesia care, the upper scope was introduced all the way to the 2nd portion of the duodenum. The esophagus showed evidence of erythema, friability, ulcerations in the middle and distal part of the esophagus suggesting severe esophagitis LA grade 4. The Z-line was at 45 cm. The stomach showed evidence of mild erythema in the body suggesting mild gastritis. Retroflexion showed normal fundus, cardia, incisura. The duodenal bulb showed evidence of mild erythema in the body suggesting mild duodenitis. The 2nd portion of the duodenum appeared normal. The air and scope was withdrawn. The patient tolerated the procedure well and was monitored in the OR in stable condition. RECOMMENDATION: 1. The patient will be on Protonix twice a day for 3 months, then we will wean it down to once daily. 2. Patient will avoid any NSAIDs. 3. The patient counseled to quit smoking. 4. The patient will follow up in the clinic within 3 weeks of discharge. 5. The patient will follow gastroesophageal reflux disease life changes. 6. Further recommendations pending hospital course. cc: MD Jorje Broussard MD [facility]
[2018-11-14] MEDS ORDERED: TYLENOL PO PRN (11:32)
[2018-11-14] MEDS: NS 1,000 ML IV SCH ×2 (11:47→22:50)
[2018-11-14] MEDS: VALIUM PO SCH ×2 (13:14→23:35)
[2018-11-14] MEDS: NEURONTIN PO SCH ×2 (13:14→23:34)
[2018-11-14] MEDS: DESYREL PO SCH (23:31)
[2018-11-14] MEDS: LOPID PO SCH (23:33)
[2018-11-14] MEDS: FOLIC ACID PO SCH (23:33)
[2018-11-14] MEDS: SEROQUEL PO SCH (23:35)
[2018-11-15] MEDS: PROTONIX IV SCH ×3 (00:56→23:48)
[2018-11-15] MEDS: HUMULIN R SUBQ SCH ×4 (06:30→23:26)
[2018-11-15 08:23] LABS: BASO# 0.02 X1000 (0.0-0.2); BASO% 0.5 % (0.0-0.8); EOS% 5.2 % (0.0-10.0); HEMATOCRIT 27.8 % (42.0-52.0); HEMOGLOBIN 8.8 g/dL (14.0-18.0); LYMPH# 2.08 X1000 (1.2-3.4); LYMPH% 53.9 % (20.5-51.1); MCH 25.3 PG (27-31); MCHC 31.7 g/dL (33-37); MCV 79.9 FL (81-99); MONO% 7.8 % (1.7-9.3); MPV 12.6 FL (7.4-10.4); NEUT# 1.26 X1000 (1.4-6.5); NEUT% 32.6 % (42.2-75.2); PLT 189 X1000 (130-400); RBC 3.48 XMIL (4.7-6.1); RDW 18.3 % (11.5-14.5); WBC 3.86 X1000 (4.8-10.8)
[2018-11-15 08:32] LABS: AGAP 7; BUN 12 mg/dL (8-22); CALCIUM 8.4 mg/dL (8.8-10.2); CHLORIDE 105 mmol/L (98-107); COSMO 279; ESTIMATED GFR > 60; GLUCOSE 169 mg/dL (70-104); POTASSIUM 4.5 mmol/L (3.5-5.1); SODIUM 138 mmol/L (136-145); TCO2 26 mmol/L (25-35)
[2018-11-15] MEDS: VALIUM PO SCH ×3 (09:12→23:24)
[2018-11-15] MEDS: FOLIC ACID PO SCH ×2 (09:12→23:24)
[2018-11-15] MEDS: LOPID PO SCH ×2 (09:12→23:23)
[2018-11-15] MEDS: VITAMIN D PO SCH (09:12)
[2018-11-15] MEDS: CYMBALTA PO SCH (09:12)
[2018-11-15] MEDS: LOPRESSOR PO SCH (09:12)
[2018-11-15] MEDS: NEURONTIN PO SCH ×3 (09:12→23:22)
[2018-11-15] MEDS: LANTUS INSULIN SUBQ SCH (09:13)
--- NOTE | 2018-11-15 10:21 | PROVIDER PROGRESS NOTE ---
Progress Note SUBJECTIVE: No acute overnight events. Afebrile. No N/V/F, CP, SOB, abdominal pain, rectal bleeding, diarrhea. He is tolerating diet. OBJECTIVE: Last Vital Signs Temp 97.6 F 11/15/18 08:00 Pulse 85 11/15/18 08:00 Resp 16 11/15/18 08:00 BP 137/67 11/15/18 08:00 Pulse Ox 98 11/15/18 08:00 Height 5 ft 11 in Weight 149 lb 7 oz GEN: awake, alert, NAD HEENT: anicteric, MMM NECK: supple, no jvd PULM: CTAB, no wheezing ABD: soft NT/ND, NABS EXT: no cce NEURO: nonfocal LABS: 11/15/18 11/15/18 07:32 07:32 WBC 3.86 L Hgb 8.8 L Plt Count 189 Sodium 138 Potassium 4.5 D Chloride 105 Carbon Dioxide 26 BUN 12 Creatinine 1.0 Glucose 169 H D EGD 11/14/2018 POSTOPERATIVE DIAGNOSES: 1. Severe esophagitis in the middle of the esophagus, LA grade 4. This was biopsied. The Z-line was at 45 cm. 2. Erosions gastric body and antrum, mild. 3. Normal fundus, cardia, incisura. 4. Duodenitis, duodenal bulb. 5. Normal 2nd portion. ASSESSMENT AND PLAN: Mr. Jefferson Mejía is a 68-year-old gentleman with GERD, remote EGD with dilation, hypertension on aspirin, insulin-dependent diabetes, bipolar disorder who was admitted with AMS and hypotension in the setting of hematemesis found to have profound iron and folate deficiency. EGD yesterday revealed severe LA grade D esophagitis and gastric erosions. He is doing well today. Abdomen is benign. CT on presentation showed dilated stomach and reflux as well as cholelithasis. I suspect patient has a component of gastroparesis resulting if reflux. #Hematemesis: 2/2 to esophagitis: resolved; hgb stable #LA grade D esophagitis: patient needs high dose PPI BID for 3 months, then once daily; repeat EGD in 3 months #PEREZ: iron replacement therapy with vitamin C TID, recheck H/H and iron studies in 3 months; he will also need outpatient colonoscopy #Folate deficiency: continue folate #Gastric erosions: PPI as above; avoid NSAIDs #Gallstones: unclear if patient has symptomatic gallstones as this would not explain PEREZ or gastric distension; suspect symptoms were 2/2 to esophagitis #IDDM2: mgmt per primary; recommend small, frequent meals; may benefit from outpatient gastric emptying study to evaluate for gastroparesis #AMS: resolved Patient will need GI follow-up Dr. Morris in 2-4 weeks after discharge. Will sign off. Please call with questions.
[2018-11-15] MEDS: NS 1,000 ML IV SCH ×2 (12:00→23:22)
[2018-11-15] MEDS: FLOXIN OTIC LEFT EAR SCH (12:01)
[2018-11-15] MEDS: INFED 250 MG in NS 250 ML IV SCH (12:09)
--- NOTE | 2018-11-15 14:55 | PROGRESS NOTE ---
DATE: 11/15/2018 SUBJECTIVE: This patient is doing much better. He is resting comfortably in bed. Vital signs are stable. At this moment he is getting iron through his IV, he is status post EGD that showed severe esophagitis, erosions of the gastric body and antrum, duodenitis, he has been recommended to continue with Protonix twice a day for 3 months and then daily, avoid NSAIDs, quit smoking and follow up in the clinic within 3 weeks upon discharge. OBJECTIVE: Vital Signs: Temperature 97.6 degrees, pulse 85, respiratory rate 16, blood pressure 137/67, oxygen saturation 98 on room air. HEENT: Head normocephalic. No trauma. PERRLA. Neck: Supple. No JVD. No masses. Central trachea. Chest: Clear to auscultation. No wheezing. No rales. Abdomen: Soft, nontender, nondistended. No hepatosplenomegaly. Extremities: No edema, no clubbing, no cyanosis. He has a small deformity at the level of the left elbow from previous intervention and is a little bit painful to palpation and mobilization but no signs of infection, back pain in the lower area. Neurological: The patient is alert. He is oriented. He is following commands, answering my questions. LABORATORY: WBC 3.8, hemoglobin 8.8, hematocrit 27.8, platelets 189,000. Sodium 138, potassium 4.5, chloride 105, bicarbonate 26, BUN 12, creatinine 1, glucose 169, calcium 8.4. ASSESSMENT AND PLAN: 1. Encephalopathy. This patient has a history of bipolar mood disorder and apparently his blood sugar was really high at home, also he came in with electrolyte imbalance, acute kidney injury, all this can contribute to his encephalopathy which is much better right now, probably this is his baseline. 2. Gastrointestinal bleed status post EGD that showed severe esophagitis, erosions in the stomach and duodenitis, will continue with Protonix twice a day for 3 months and then once a day and he will be followed up by Gastroenterology Department as an outpatient. 3. Acute kidney injury, resolved. 4. Type 2 diabetes with hyperglycemia, resolved. Continue with the same management for now. 5. History of bipolar mood disorder and suicide attempt in the past, aware. Currently he is getting his home medications, he seems to be stable. 6. Acute kidney injury, resolved. 7. Hyponatremia, resolved. cc: Sixto Smith MD
[2018-11-15] MEDS: DESYREL PO SCH (23:23)
[2018-11-15] MEDS: SEROQUEL PO SCH (23:23)
[2018-11-16] MEDS: HUMULIN R SUBQ SCH ×4 (06:13→22:11)
[2018-11-16] MEDS: NS 1,000 ML IV SCH ×2 (11:03→17:05)
[2018-11-16] MEDS: NEURONTIN PO SCH ×2 (11:04→17:05)
[2018-11-16] MEDS: LOPRESSOR PO SCH (11:05)
[2018-11-16] MEDS: CYMBALTA PO SCH (11:05)
[2018-11-16] MEDS: FOLIC ACID PO SCH ×2 (11:05→22:10)
[2018-11-16] MEDS: VALIUM PO SCH ×2 (11:05→17:05)
[2018-11-16] MEDS: LOPID PO SCH ×2 (11:06→22:10)
[2018-11-16] MEDS: FLOXIN OTIC LEFT EAR SCH (11:06)
[2018-11-16] MEDS: VITAMIN D PO SCH (11:06)
[2018-11-16] MEDS: PROTONIX PO SCH ×2 (11:26→22:10)
[2018-11-16] MEDS: LANTUS INSULIN SUBQ SCH (11:26)
--- NOTE | 2018-11-16 13:21 | PROGRESS NOTE ---
DATE: 11/16/2018 SUBJECTIVE: This patient seems to be medically stable. I will restart his home medications for diabetes. Today I received a call from the nurse and she stated that this patient is having some suicidal ideations. I met with the patient and I talked about it. He seems to be depressed and he corroborated the information that the nurse told me, he states that if he goes back to his sister's house, he will kill himself, he feels depressed and he just wants to quit living. OBJECTIVE: Vital Signs: Temperature 98.3 degrees, pulse 64, respiratory rate 16, blood pressure 106/52, oxygen saturation 96 on room air. HEENT: Head normocephalic. No trauma. PERRLA. Neck: Supple. No JVD. No masses. Central trachea. Chest: Clear to auscultation. No wheezing. No rales. Abdomen: Soft, nontender, nondistended. No hepatosplenomegaly. Extremities: No edema, no clubbing, no cyanosis. He has a deformity at the level of the left elbow from previous intervention and is a little bit painful to palpation and mobilization but no signs of infection, he is also complaining of back pain. Neurological: The patient is alert. He is oriented. He is following commands, answering my questions. He does have weakness. LABORATORY DATA: Morning glucose of 536, 123. Laboratory from yesterday stable. ASSESSMENT AND PLAN: 1. Encephalopathy, resolved. This is basically his baseline. It looks like he has a history of bipolar mood disorder and apparently his blood sugar was really high at home, also he came in with electrolyte imbalance, acute kidney injury and all this can contribute to his encephalopathy, which is much better now. 2. Gastrointestinal bleed status post EGD that showed severe esophagitis, erosions in the stomach and duodenitis. Will continue with Protonix twice a day for 3 months and then once a day. Follow up by Gastroenterology Department as an outpatient. 3. Acute kidney injury, resolved. 4. Type 2 diabetes with hyperglycemia, this is much better. I will put him back on his home medications. 5. History of bipolar mood disorder and suicide attempt in the past. Aware. Actually, this patient feels depressed and he states that he will hurt himself if he goes to his house. 6. Hyponatremia, resolved. 7. Suicidal ideation, as above. PLAN: This patient seems to be medically stable but he feels depressed and he wants to quit living. As per the patient, if he goes home, he will likely kill himself. I have requested an evaluation by Angel Cook to see the patient meets criteria for hospitalization. cc: Sixto Smith MD
[2018-11-16 13:42] LABS: AGAP 7; BUN 12 mg/dL (8-22); CALCIUM 8.4 mg/dL (8.8-10.2); CHLORIDE 106 mmol/L (98-107); COSMO 278; ESTIMATED GFR > 60; GLUCOSE 120 mg/dL (70-104); POTASSIUM 4.9 mmol/L (3.5-5.1); SODIUM 139 mmol/L (136-145); TCO2 26 mmol/L (25-35)
[2018-11-16 13:44] LABS: BASO# 0.03 X1000 (0.0-0.2); BASO% 0.7 % (0.0-0.8); EOS# 0.21 X1000 (0.0-0.7); EOS% 4.9 % (0.0-10.0); HEMATOCRIT 27.5 % (42.0-52.0); HEMOGLOBIN 8.6 g/dL (14.0-18.0); LYMPH% 53.5 % (20.5-51.1); MCH 25.4 PG (27-31); MCHC 31.3 g/dL (33-37); MCV 81.1 FL (81-99); MONO# 0.38 X1000 (0.11-0.59); MONO% 8.8 % (1.7-9.3); MPV 12.9 FL (7.4-10.4); NEUT# 1.38 X1000 (1.4-6.5); NEUT% 32.1 % (42.2-75.2); PLT 190 X1000 (130-400); RBC 3.39 XMIL (4.7-6.1); RDW 18.7 % (11.5-14.5)
--- NOTE | 2018-11-16 22:12 | Diag Imaging Result Doc PS360 ---
EXAM: CHEST-2 VIEWS INDICATION: for transfer to [facility] TECHNIQUE: 2 views COMPARISON: 11/12/2018 FINDINGS: There is evidence of prior granulomatous disease, stable. The increased central vasculature seen previously has diminished suggesting mild pulmonary venous congestion seen on the previous study has improved to near resolution. No new consolidation is identified. Cardiac silhouette is stable. IMPRESSION: Improvement of the mild pulmonary venous congestion seen previously to near resolution. Electronically signed by Buck Rodriguez 11/16/2018 10:10 PM
[2018-11-17 01:22] VITALS: BP 113/54
[2018-11-17] MEDS ORDERED: ACTOS PO SCH (09:00)
--- NOTE | 2018-11-17 18:11 | DISCHARGE SUMMARY ---
ADMISSION DATE: 11/13/2018 DISCHARGE DATE: 11/17/2018 DISCHARGE DIAGNOSES: 1. Encephalopathy, resolved. 2. GI Bleed status post EGD that showed severe esophagitis, erosions in the stomach and duodenitis. 3. Acute kidney injury, resolved. 4. Type 2 diabetes with hyperglycemia, controlled. 5. History of bipolar mood disorder and suicide attempt in the past, aware. 6. Suicidal ideation during this hospitalization, this patient will be transferred to [facility]. 7. Hyponatremia, resolved. PROCEDURES PERFORMED: 1. Head CT scan dated 11/12/2018. Impression: No evidence of acute intracranial pathology by CT, chronic left maxillary sinusitis. 2. Chest, abdomen and pelvis CT scan dated 11/13/2018. Impression: Markedly distended stomach with gastroesophageal reflux up to the upper thoracic esophagus, bibasilar atelectasis and possible aspiration pneumonia. A small left pleural effusion, the possibility of gastroparesis should be considered. Cholelithiasis, nonspecific right renal mass. 3. Operative note dated 11/14/2018, Surgery. EGD with esophageal biopsy. Postoperative diagnosis: Severe esophagitis in the middle of the esophagus Tel A grade 4, erosions gas at the level of the gastric body and antrum, mild. Normal fundus, cardiac and incisura, duodenitis at the level of the duodenal bulb, normal second portion of the duodenum. 4. Chest x-ray dated 11/16/2018. Impression: Improvement of the mild pulmonary venous congestion seen previously to near resolution. HOSPITAL COURSE: A 68-year-old male who apparently was able to walk until a few months ago. He has been living at the assisted living facility off [facility], apparently he has been having problem with memory and he will forget to pay his rent and he recently has not been able to take care of himself anymore. It looks like he now has been removed from that facility and now he lives with his daughter and/or his sister, I am not quite sure about it, and it looks like he has been more confused over the past 3 months, and he has not been able to sleep either too much. Apparently, he has been complaining of right hip pain and this is keeping him awake. Apparently, he was brought to the emergency department on 11/12/2018 because she found him lethargic and he was very confused. She called the ambulance. Also, it was noted in the ER notes that his blood sugars were elevated. The family member states that he did have previous history of alcohol abuse, but he has not been drinking for years and also he has not been using drugs apparently. During the physical exam upon admission, the patient was drowsy, but he was arousable. He was having nausea, vomiting, and coffee-ground emesis. Hemoccult was positive. Abdominal pain and generalized tenderness, dizziness upon standing and he was complaining also of some shortness of breath. No cough or chest pain. He denied dysuria, numbness, tingling or swelling in his extremities. The patient was transferred to the ICU. CT scan of the head was performed and did not show any acute process. CT of the abdomen and pelvis also was done and showed a markedly distended stomach with gastroesophageal reflux up to the upper thoracic esophagus, cholelithiasis, and nonspecific renal mass. The patient has been evaluated by the Gastroenterology Department. He received some IV fluids. They did an endoscopy that showed severe esophagitis, erosive gastritis, normal fundus, cardiac and incisura, duodenitis and second portion of the duodenum was normal as well. Also, when he came in he had acute kidney injury on top of his encephalopathy. His diabetes seems to be more controlled. He has a history of bipolar mood disorder and suicide attempt in the past, so when I started talking to this patient about further plans he states that he did not want to go to his sister's house and he told me that to be honest I want to hurt myself, put an end of this. So, I interrogated better the patient and it looks like he has been depressed, and he was very specific about hurting himself once he is out of the hospital. I contacted [facility] for evaluation and they decided to take the patient as an inpatient. PHYSICAL EXAMINATION: Vital Signs: Temperature 98.3, pulse 71, respiratory rate 16, blood pressure 113/58. Oxygen saturation 100% on room air. HEENT: Head normocephalic, no trauma. PERRLA. Neck: Supple, no JVD. No masses. Central trachea. Chest: Clear to auscultation. No wheezing. No rales. Abdomen: Soft, nontender, nondistended. No hepatosplenomegaly. Extremities: No edema, no clubbing, no cyanosis. He has deformity at the level of the left elbow from previous intervention that used to be a little bit painful to palpation and mobilization, but now seems to be better. He is complaining of back pain. Neurologic: He is alert. He is oriented. He is following commands, but he has severe weakness. He is answering my questions as well. DISCHARGE MEDICATIONS: Vitamin D3 5000 units p.o. daily, diazepam 1 tablet p.o. t.i.d. 5 mg, Cymbalta 60 mg p.o. daily, folic acid 1 mg p.o. b.i.d. furosemide 40 mg p.o. daily, gabapentin 800 mg p.o. t.i.d., gemfibrozil 600 mg p.o. b.i.d., Lantus 15 units p.o. daily, pioglitazone 45 mg p.o qd, pantoprazole 40 mg p.o. b.i.d., potassium chloride 20 mg p.o. daily, Seroquel 300 mg p.o. at bedtime, trazodone 150 mg p.o. at bedtime, metoprolol 25 mg p.o. daily. The patient will be discharged to [facility], which has accepted the patient for treatment. cc: Sixto Smith MD MTDD
== END 2018-11-17 01:23 | DRG 380 ==
LOC: ED 20:38 → ICU 11-13 02:00 → SUATTDRO 11-13 02:00 → 3N 11-14 12:24
PROVIDERS: ATTEND Internal Medicine
CPT/HCPCS: 51702; 70450; 71010; 71020; 71045; 71046; 71250; 74176; 80048; 80053; 80101; 80301; 80307; 80320; 80324; 80345; 80346; 80353; 80358; 80361; 80365; 81001; 82009; 82055; 82270; 82271; 82550; 82607; 82728; 82746; 82805; 82948; 83036; 83540; 83550; 83605; 83735; 83880; 83992; 84484; 85014; 85018; 85025; 85610; 85730; 86850; 86900; 86901; 88305; 88313; 93005; 94761; 94799; 96360; 96361; 97116; 97162; 99285; A9270; C9113; G0431; G0434; G0479; G0480; G6040; J1750; J1815; J2405; J3010; J3475; J7030; J7050; J7120; S0164; XXXXX